=== PATIENT | female | born 2000 | race Caucasian/White ===

== ENCOUNTER 2022-10-03 15:24 | Outpatient (CLI) | payer BC, SELFPAY ==
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
== END 2022-10-03 15:25 | disposition home or self-care (01) ==
LOC: NFLDREF 10-04 08:13
PROVIDERS: PCP Physician Assistant Medical; Referring Provider Physician Assistant Medical; Visit Provider Nurse Practitioner Family
DX: R10.31 Right lower quadrant pain (principal)
CPT/HCPCS: 87086

== ENCOUNTER 2024-07-01 08:31 | Day surgery (SDC) | payer OTHER, SELFPAY ==
[2024-07-01] VITALS (12 sets, daily range): BP systolic 115–144; BP diastolic 65–99; PULSE 80–103; RESP 14–20; TEMP 36.4–37; O2SAT 93–99; BMI 42.9
[2024-07-01] MEDS: LACTATED RINGERS 1000 ML 1,000 ML 100 ML IV (09:00)
[2024-07-01] MEDS: SODIUM CHLORIDE 0.9 % (FLUSH) 10 ML SYRINGE IVF (09:00)
--- NOTE | 2024-07-01 09:54 | SUR.OPER ---
PATIENT QUESTIONS ANSWERED SATISFACTORILY PREOPERATIVELY. PATIENT BROUGHT TO OR #2 PER CART. Patient positioned supine on OR #2 bed. Perioperative team wrapped arms bilaterally at patient side with drawsheet. ? Final approval of positioning by surgeon.
--- NOTE | 2024-07-01 10:56 | W.PM.ENTPROC ---
Procedure Note Date of procedure: 07/01/24 Procedure: Preoperative diagnosis chronic tonsillitis, adenotonsillar hypertrophy, upper airway obstruction, nasal obstruction Postoperative diagnosis same Procedure adenotonsillectomy Under general endotracheal anesthesia the patient was prepped and draped in usual fashion. The McIvor mouth gag was inserted the tongue retracted forward. No submucous cleft was noted on inspection or palpation. The right and left tonsils were removed with a combination of needlepoint cautery, bipolar cautery and suction cautery. Meticulous hemostasis was achieved. The adenoid pad was visualized with a laryngeal mirror and removed with suction cautery. The patient was extubated in the operating room taken recovery in satisfactory condition. Blood loss was less than 10 mL. Surgeon: Phi Ga MD
--- NOTE | 2024-07-01 11:08 | P.ANES_ITS ---
Anesthesia Charges Start Date/Time Anesthesia Start Date: 07/01/24 Anesthesia Start Time: 10:27 Stop Date/Time Anesthesia Stop Date: 07/01/24 Anesthesia Stop Time: 11:05 Coding CPT Codes CPT Codes: ANESTH PROCEDURE ON MOUTH - 82788 ([id number]) P2 - PATIENT W/MILD SYST DISEASE, QZ - DIRECTOR BUSINESS MANAGEMENT SVC W/O CROWN IRONER BY
--- NOTE | 2024-07-01 11:08 | W.ANESCHARGE ---
Anesthesia Charges Start Date/Time Anesthesia Start Date: 07/01/24 Anesthesia Start Time: 10:27 Stop Date/Time Anesthesia Stop Date: 07/01/24 Anesthesia Stop Time: 11:05 Coding CPT Codes CPT Codes: ANESTH PROCEDURE ON MOUTH - 40490 ([id number]) P2 - PATIENT W/MILD SYST DISEASE, QZ - IT PROGRAMMER SVC W/O CERTIFIED MEDICATION AIDE BY
[2024-07-01] MEDS: OXYCODONE 1 MG/ML ORAL SOLN 5 MG PO (11:52)
[2024-07-01] MEDS: ACETAMINOPHEN 160 MG/5 ML CUP 320 MG PO (11:52)
[2024-07-01] MEDS: IBUPROFEN 100 MG/5 ML SUSP 200 MG PO (11:52)
== END 2024-07-01 12:57 | disposition home or self-care (01) ==
LOC: OR 08:32
PROVIDERS: PCP Physician Assistant Medical; Visit Provider Otolaryngology
PROC: (CPT 42821; principal; 2024-07-01 10:30)
DX: J35.01 Chronic tonsillitis (principal); J35.3 Hypertrophy of tonsils with hypertrophy of adenoids; J34.89 Other specified disorders of nose and nasal sinuses
CPT/HCPCS: 42821; 00170; 88304; A9270; J1100; J2250; J2405; J2704; J3010; J7120